=== PATIENT | male | born 1960 | race Caucasian/White ===

== ENCOUNTER → 2023-09-09 15:45 | Outpatient (CLI) | payer OTHER, SELFPAY ==
--- NOTE | ~2023-09-09 | CT_ITS ---
EXAMINATION:CT lung screening DATE: 09/09/2023 16:00 INDICATION: Personal history of tobacco use. Current smoker with 40 pack year history. TECHNIQUE: Computed tomography (CT) of the chest was performed without intravenous contrast. Automate d exposure control and iterative reconstruction technique were employed. The dose-length product (DLP ) was 68.29 mGy-cm. COMPARISON: None. FINDINGS: There is mild emphysema. There are changes of left upper lobectomy. There is an 11 mm cavit ramya nodule in right upper lobe. There is a 2.2 cm cavitary nodule in right upper lobe. There is a 1.5 cm nodule in right upper lobe. There is a 2.3 cm cavitary nodule in left upper lobe. No pleural effu seamus. The heart size is normal. No pericardial effusion. There is severe thoracic spondylosis. There is mild chronic anterior wedging of multiple vertebral bodies. IMPRESSION: 1. Lung-RADS category 4B: Very suspicious. Comparison with a prior outside CT is recommended given th e patient's history of lung resection for infection. If no CT is available, consider PET/CT or CT-moe ded biopsy. Reviewed, dictated and finalized at location E. ION REPAIRER IMPRESSION: 1. Lung-RADS category 4B: Very suspicious. Comparison with a prior outside CT i s recommended given the patient's history of lung resection for infection. If n o CT is available, consider PET/CT or CT-guided biopsy.
== END ==
DX: Z12.2 Encounter for screening for malignant neoplasm of respiratory organs (principal); F17.210 Nicotine dependence, cigarettes, uncomplicated; R91.8 Other nonspecific abnormal finding of lung field
CPT/HCPCS: 71271

== ENCOUNTER 2024-03-27 15:12 | Outpatient (CLI) | payer OTHER, SELFPAY ==
--- NOTE | ~2024-03-27 | CT_ITS ---
EXAMINATION:CT diagnostic chest wo con DATE: 03/27/2024 15:26 INDICATION: Multiple lung nodules. TECHNIQUE: Computed tomography (CT) of the chest was performed without intravenous contrast. Automate d exposure control and iterative reconstruction technique were employed. The dose-length product (DLP ) was 73.13 mGy-cm. COMPARISON: Chest CT 09/09/2023 FINDINGS: There is mild emphysema. There are changes of left upper lobectomy. There are approximately 7 scattered nodules in the lungs, most of which are cavitary. For example, there is a 2.7 x 1.4 cm c avitary nodule in right upper lobe that previously measured 3.2 x 1.6 cm. The wall is less thick on t he current exam. There is a 19 x 8 mm nodule in right upper lobe that previously measured 18 x 12 mm. There is a 3.2 x 1.8 cm cavitary nodule in left upper lobe that previously measured 3.0 x 1.7 cm. Th e wall is less thick on the current exam. No pleural effusion. The heart size is normal. No pericardi al effusion. There is mild thoracic spondylosis. There is mild chronic anterior wedging of multiple l ower thoracic vertebral bodies. IMPRESSION: 1. Pulmonary nodules with improvement from 09/05/2023. The improvement suggests these findings are like ly benign if there has been no cancer treatment. Reviewed, dictated and finalized at location A. IMPRESSION: 1. Pulmonary nodules with improvement from 09/05/2023. The improvement suggests t hese findings are likely benign if there has been no cancer treatment.
== END 2024-03-27 15:13 ==
LOC: MICIMG 15:13
DX: R91.8 Other nonspecific abnormal finding of lung field (principal)
CPT/HCPCS: 71250

== ENCOUNTER 2024-10-25 15:43 | Outpatient (CLI) | payer OTHER, SELFPAY ==
--- NOTE | ~2024-10-25 | CT_ITS ---
EXAMINATION:CT diagnostic chest wo con DATE: 10/25/2024 16:00 INDICATION: Multiple lung nodules. TECHNIQUE: Computed tomography (CT) of the chest was performed without intravenous contrast. Automate d exposure control and iterative reconstruction technique were employed. The dose-length product (DLP ) was 215.80 mGy-cm. COMPARISON: Chest CT 03/27/2024, 09/09/2023 FINDINGS: There is mild emphysema. There are changes of left upper lobectomy. There are approximately 7 scattered nodules in the lungs, some which are cavitary. For example, a cavitary nodule in right u pper lobe measures 2.6 x 1.6 cm. There is a 3.5 x 2.1 cm cavitary nodule in left lower lobe. No pleur al effusion. The heart size is normal. No pericardial effusion. Mild mediastinal lymphadenopathy with out change. There is a 12 mm cyst in the liver. There is old healed fracture of left eighth rib. Ther e is moderate thoracic spondylosis. IMPRESSION: 1. Pulmonary nodules, stable from 03/27/2024 and improved from 09/09/2023. If there has been no cancer t reatment, these findings are likely benign. Reviewed, dictated and finalized at location A. IMPRESSION: 1. Pulmonary nodules, stable from 03/27/2024 and improved from 09/09/2023. If ther e has been no cancer treatment, these findings are likely benign.
== END 2024-10-25 15:44 | disposition home or self-care (01) ==
LOC: MICIMG 15:46
DX: R91.8 Other nonspecific abnormal finding of lung field (principal); A31.0 Pulmonary mycobacterial infection
CPT/HCPCS: 71250

== ENCOUNTER → 2024-11-05 15:16 | Outpatient (REF) | payer OTHER, SELFPAY ==
--- OUTSIDE RECORDS SUMMARY | 2024-11-05 17:23 | XMS_ITS | Continuity of Care Document ---
Author Organization [facility] Address [address] [place] [address] Phone Care Team Providers Care Harvest Manager Name Role Phone Figueroa OTR/L MARIA INESTJosiane Unavailable Unavaila ble Procedures Procedure Date OT EVALUATION THERAPEUTIC EXERCISES ORTHOTIC FITTING Non-compressive stockinette per foot Dec Forearm OT EVALUATION THERAPEUTIC EXERCISES ORTHOTIC FITTING Non-compressive stockinette per foot Sep Forearm Advance Directives Directive Yes / No Effective Date File Name No Information Encounters Encounter Description Practice Location Reason(s) For Visit Diagnoses Date Provider Providers Copied on Encounter [facility], [address], [id number], tel:[phone] [place] No Information 3 Figueroa Joshua. [address] [facility] [address], [place], [facility], . tel:[phone] Referring Provider: Blake Marti, [address] [facility] [address], [place], [address]. tel:[phone] [facility] [address] [place] [address], [id number], tel:[phone] [place] Pain in joint involving hand 3 Jae Rani. [address] [facility], [facility] [address], [place], [address], . tel:[phone] Referring Provider: Blake Marti, [address] [facility] [address], [place], [address]. tel:[phone] Family History Family Member Type Diagnosis Age At Onset No Information Payers Payer name Insurance type Covered republican ID Authorreese nieves(s) [employer] [facility] [id number] Social History Type Description Quantity Date Captured Comments Sex Male Smoking Status No Information Chief Complaint And Reason For Visit No Information Reason For Referral Reason For Referral No Information History Of Present Illness Encounter Date Complaint History Of Prese nt Illness No Information Functional Status Date Functional Assessmen t No Information Instructions Date Instruction Additional Infor mation No Information Assessments Type Assessment Date No Information Patient Care Teams Name Effective Dates (start - stop) Status Members No Information
== END ==
LOC: ANHLAB 15:16
PROVIDERS: Visit Provider Plastic Surgery
DX: L72.0 Epidermal cyst (principal)
CPT/HCPCS: 88305